=== PATIENT | male | born 1940 | race Caucasian/White ===

== ENCOUNTER 2019-12-11 10:30 | Inpatient (IN) ==
[2019-12-11] MEDS ORDERED: 0.9 % Sodium Chloride 1,000 ML IVC ONE (10:38)
[2019-12-11 11:13] LABS: Basophils % 0.6 %; Eosinophils % 0.3 %; Hematocrit 38.1 % (37.5-50.1); Hemoglobin 13.1 g/dL (12.9-16.9); Immature Granulocytes % 0.3 % (0-4); Lymphocytes # 1.8 K/mcL (0.6-4.6); Lymphocytes % 24.9 %; Mean Corpuscular HGB Conc 34.4 g/dL (31.6-35.5); Mean Corpuscular Hemoglobin 31.7 pg (28.0-33.3); Mean Corpuscular Volume 92.3 fL (83.0-100.0); Mean Platelet Volume 9.9 fL (9.4-12.4); Monocytes # 0.7 K/mcL (0.0-1.3); Monocytes % 10.5 %; Neutrophils # 4.5 K/mcL (1.6-8.9); Platelet Count 214 K/mcL (140-400); Red Blood Count 4.13 M/mcL (4.19-5.50); Red Cell Distribution Width 15.2 % (11.5-14.5); Segmented Neutrophils % 63.4 %
[2019-12-11 11:15] LABS: Bilirubin,Urine Negative (Negative); Blood,Urine Small (Negative); Clarity,Urine Cloudy (Clear); Color,Urine Yellow (Yellow); Glucose,Urine (UA) Normal (Normal); Ketones,Urine 15 mg/dL (Negative); Leukocyte Esterase,Urine Negative (Negative); Nitrite,Urine Negative (Negative); PH,Urine 7.5 pH Units (5.0-8.0); Protein,Urine 100 mg/dL (Neg-Trace); Specific Gravity,Urine 1.013 (1.010-1.025); Urobilinogen,Urine Normal (Normal)
[2019-12-11 11:17] LABS: ABG Base Excess 4 mEq/L (-2 to 3); ABG HCO3 28 mEq/L (21-27); ABG Oxygen Saturation 96 % (95-98); ABG PCO2 41 mmHg (35-45); ABG PH 7.44 pH Units (7.32-7.45); ABG PO2 77 mmHg (85-104); ABG TCO2 29 mEq/L (20-26)
[2019-12-11 11:18] LABS: Bacteria,Urine None Seen per hpf (None-Few); Hyaline Casts,Urine None Seen per lpf (None-Few); Squamous Epithelial Cell,Urine Many per lpf (None-Few); WBC,Urine 0-3 per hpf (0-3)
[2019-12-11 11:20] LABS: INR 1.1; Prothrombin Time 12.1 Seconds (9.4-12.1)
[2019-12-11 11:39] LABS: Alanine Aminotransferase 32 Units/L (7-52); Albumin 3.9 g/dL (3.5-5.7); Albumin/Globulin Ratio 1.1 (1.1-2.2); Alkaline Phosphatase 90 Units/L (34-104); Aspartate Amino Transferase 35 Units/L (13-39); BUN/Creatinine Ratio 13 (6-26); Bilirubin,Direct 0.2 mg/dL (0.0-0.2); Bilirubin,Indirect 0.5 mg/dL (0.0-1.0); Bilirubin,Total 0.7 mg/dL (0.3-1.0); Blood Urea Nitrogen 14 mg/dL (8-23); Calcium 9.1 mg/dL (8.6-10.3); Carbon Dioxide 26 mEq/L (23-29); Chloride 93 mEq/L (98-107); Ethanol < 10 mg/dL (Less than 10); Globulin 3.5 g/dL (2.4-3.5); Glucose 214 mg/dL (70-105); Magnesium 1.5 mg/dL (1.6-2.6); Osmolality,Calculated 279 (280-300); Potassium 3.5 mEq/L (3.5-5.1); Sodium 131 mEq/L (136-145); Total Protein 7.4 g/dL (6.4-8.9); Troponin I 0.04 ng/mL (< 0.04); eGFR For African Americans > 60 (> 60); eGFR For Non-African Americans > 60 (> 60)
[2019-12-11] MEDS ORDERED: Naloxone 0.4 MG/ML INJ IVP PRN (14:26)
[2019-12-11] MEDS ORDERED: methylPREDNISolone 125 MG/2 ML VIAL IVP ONE (14:33)
[2019-12-11 14:56] LABS: Appearance,CSF Clear (Clear)
[2019-12-11 15:04] LABS: Red Blood Cell,CSF < 2000 RBC/mcL
[2019-12-11 15:26] LABS: Glucose,CSF 119 mg/dL (40-70); Total Protein,CSF > 200 mg/dL (15-45)
[2019-12-11 15:39] LABS: C-Reactive Protein 39 mg/L (Less than 10)
[2019-12-11 15:43] LABS: Basophils,CSF 0 %; Eosinophils,CSF 0 %; Other Cells,CSF 0 %
[2019-12-11] MEDS ORDERED: Ipratropium/Albuterol Neb 3 ML IH SCH (16:00)
[2019-12-11] MEDS: IPRATROPIUM/ALBUTEROL SULFATE 120 PUFF INHALER IH SCH ×2 (16:04→22:22)
[2019-12-11] MEDS ORDERED: cefTRIAXone 2,000 MG in Water for inj. (sterile) 20 ML IVP STA (16:24)
[2019-12-11] MEDS ORDERED: Acetaminophen IV 1,000 MG/100 ML INFUS..BTL IVPB STA (16:24)
[2019-12-11] MEDS ORDERED: Acyclovir 800 MG in D5% in Water 250 ML IVPB STA (16:24)
[2019-12-11] MEDS: Insulin LISPRO 300 UNITS/3 ML VIAL SQ SCH (16:38)
[2019-12-11] MEDS: Ampicillin 2 GM in 0.9 % Sodium Chloride Mini Bag 100 ML IVPB SCH ×2 (17:48→19:51)
[2019-12-11 18:03] LABS: Procalcitonin 0.18 ng/mL (0.00-0.15)
[2019-12-11] MEDS: Vancomycin 2,000 MG/520 ML IV.SOLN IVPB SCH (18:23)
[2019-12-11] MEDS ORDERED: predniSONE 20 MG TABLET PO ONE (20:00)
[2019-12-11] MEDS: *HR* Heparin 5,000 UNIT/ML VIAL SQ SCH (21:55)
[2019-12-11] MEDS ORDERED: MethylPREDNISolone 40 MG/ML VIAL IVP SCH (22:00)
[2019-12-12] MEDS: Acyclovir 800 MG in D5% in Water 250 ML IVPB SCH ×3 (01:03→16:15)
[2019-12-12] MEDS: Ampicillin 2 GM in 0.9 % Sodium Chloride Mini Bag 100 ML IVPB SCH ×7 (01:03→23:42)
[2019-12-12] MEDS: Insulin LISPRO 300 UNITS/3 ML VIAL SQ SCH ×4 (01:10→16:36)
[2019-12-12 02:14] LABS: Basophils % 0.2 %; Hematocrit 34.9 % (37.5-50.1); Hemoglobin 12.8 g/dL (12.9-16.9); Immature Granulocytes % 0.2 % (0-4); Lymphocytes # 0.7 K/mcL (0.6-4.6); Lymphocytes % 12.7 %; Mean Corpuscular HGB Conc 36.7 g/dL (31.6-35.5); Mean Corpuscular Hemoglobin 35.7 pg (28.0-33.3); Mean Corpuscular Volume 97.2 fL (83.0-100.0); Mean Platelet Volume 10.2 fL (9.4-12.4); Monocytes # 0.1 K/mcL (0.0-1.3); Monocytes % 2.2 %; Neutrophils # 4.3 K/mcL (1.6-8.9); Platelet Count 217 K/mcL (140-400); Red Blood Count 3.59 M/mcL (4.19-5.50); Red Cell Distribution Width 16.5 % (11.5-14.5); Segmented Neutrophils % 84.7 %; White Blood Count 5.1 K/mcL (4.3-11.1)
[2019-12-12 02:34] LABS: BUN/Creatinine Ratio 16 (6-26); Blood Urea Nitrogen 19 mg/dL (8-23); Calcium 8.4 mg/dL (8.6-10.3); Carbon Dioxide 21 mEq/L (23-29); Chloride 93 mEq/L (98-107); Glucose 375 mg/dL (70-105); Magnesium 1.7 mg/dL (1.6-2.6); Osmolality,Calculated 288 (280-300); Potassium 3.9 mEq/L (3.5-5.1); Sodium 130 mEq/L (136-145); eGFR For African Americans > 60 (> 60); eGFR For Non-African Americans 58 (> 60)
[2019-12-12] MEDS: IPRATROPIUM/ALBUTEROL SULFATE 120 PUFF INHALER IH SCH ×4 (03:28→22:18)
[2019-12-12] MEDS: Vancomycin 2,000 MG/520 ML IV.SOLN IVPB SCH (05:40)
[2019-12-12] MEDS: *HR* Heparin 5,000 UNIT/ML VIAL SQ SCH ×3 (05:41→21:58)
[2019-12-12] MEDS ORDERED: D5% in Water 1,000 ML IVC PRN ×2 (08:00→13:40)
[2019-12-12] MEDS ORDERED: Dextrose Gel 15 GM/37.5 ML TUBE PO PRN ×4 (08:00→13:40)
[2019-12-12] MEDS ORDERED: *HR* Dextrose 50 % in Water (Syg) 50 ML SYRINGE IVP PRN ×2 (08:00→13:40)
[2019-12-12] MEDS ORDERED: Levothyroxine Sodium 100 MCG VIAL IVP SCH (09:00)
[2019-12-12] MEDS ORDERED: Insulin DETEMIR 100 UNIT/ML X5UNITS SQ SCH (09:00)
[2019-12-12] MEDS: cefTRIAXone 2,000 MG in Water for inj. (sterile) 20 ML IVP SCH ×2 (09:25→20:34)
[2019-12-12] MEDS: 0.9 % Sodium Chloride 1,000 ML IVC SCH (09:25)
[2019-12-12] MEDS: Nystatin SUSP 5 ML UD.LIQ PO SCH ×3 (12:15→20:34)
[2019-12-12] MEDS ORDERED: Vancomycin 1,500 MG/265 ML IV.SOLN IVPB SCH (17:00)
[2019-12-12] MEDS: Insulin DETEMIR 100 UNIT/ML X5UNITS SQ SCH (20:35)
[2019-12-12] MEDS ORDERED: Insulin LISPRO 300 UNITS/3 ML VIAL SQ SCH (21:00)
[2019-12-12] MEDS ORDERED: Gabapentin 100 MG CAPSULE PO SCH (21:00)
[2019-12-12] MEDS: *HR* HYDROcodone/Acet 5/325 mg TABLET PO PRN (23:42)
[2019-12-13] MEDS: Acyclovir 800 MG in D5% in Water 250 ML IVPB SCH ×3 (00:24→20:42)
[2019-12-13] MEDS: 0.9 % Sodium Chloride 1,000 ML IVC SCH ×2 (01:03→12:43)
[2019-12-13] MEDS: Ampicillin 2 GM in 0.9 % Sodium Chloride Mini Bag 100 ML IVPB SCH ×2 (03:49→08:54)
[2019-12-13] MEDS: Ipratropium/Albuterol Neb 3 ML IH SCH ×2 (04:14→11:23)
[2019-12-13] MEDS ORDERED: Vancomycin 2,000 MG/520 ML IV.SOLN IVPB SCH (05:00)
[2019-12-13 05:46] LABS: Hematocrit 35.2 % (37.5-50.1); Hemoglobin 11.7 g/dL (12.9-16.9); Mean Corpuscular HGB Conc 33.2 g/dL (31.6-35.5); Mean Corpuscular Hemoglobin 31.9 pg (28.0-33.3); Mean Corpuscular Volume 95.9 fL (83.0-100.0); Mean Platelet Volume 10.3 fL (9.4-12.4); Platelet Count 168 K/mcL (140-400); Red Blood Count 3.67 M/mcL (4.19-5.50); Red Cell Distribution Width 15.7 % (11.5-14.5); White Blood Count 6.1 K/mcL (4.3-11.1)
[2019-12-13] MEDS: *HR* Heparin 5,000 UNIT/ML VIAL SQ SCH ×3 (05:59→22:52)
[2019-12-13 07:47] LABS: BUN/Creatinine Ratio 19 (6-26); Blood Urea Nitrogen 24 mg/dL (8-23); Calcium 7.8 mg/dL (8.6-10.3); Carbon Dioxide 28 mEq/L (23-29); Chloride 98 mEq/L (98-107); Glucose 304 mg/dL (70-105); Osmolality,Calculated 291 (280-300); Potassium 3.4 mEq/L (3.5-5.1); Sodium 133 mEq/L (136-145); eGFR For African Americans > 60 (> 60); eGFR For Non-African Americans 56 (> 60)
[2019-12-13] MEDS ORDERED: Gadolinium Contrast Agent (WT Based) IV PRN (08:09)
[2019-12-13] MEDS: Insulin LISPRO 300 UNITS/3 ML VIAL SQ SCH ×5 (08:39→22:49)
[2019-12-13] MEDS: Metoprolol XL (24 HR) Succ 50 MG TAB.ER.24H PO SCH (08:41)
[2019-12-13] MEDS: predniSONE 5 MG TABLET PO SCH (08:43)
[2019-12-13] MEDS: amLODIPine 5 MG TABLET PO SCH (08:43)
[2019-12-13] MEDS: Aspirin Enteric Coated 81 MG Tablet PO SCH (08:44)
[2019-12-13] MEDS: Folic Acid 1 MG TABLET PO SCH (08:44)
[2019-12-13] MEDS: Nystatin SUSP 5 ML UD.LIQ PO SCH ×4 (08:44→22:52)
[2019-12-13] MEDS: cefTRIAXone 2,000 MG in Water for inj. (sterile) 20 ML IVP SCH (08:45)
[2019-12-13] MEDS: Cholecalciferol (D-3) 1,000 UNIT (25MCG) TABLET PO SCH (08:49)
[2019-12-13] MEDS: Insulin DETEMIR 100 UNIT/ML X5UNITS SQ SCH ×2 (08:56→22:51)
[2019-12-13 11:41] LABS: ABG Base Excess 1 mEq/L (-2 to 3); ABG HCO3 27 mEq/L (21-27); ABG Oxygen Saturation 94 % (95-98); ABG PCO2 46 mmHg (35-45); ABG PH 7.38 pH Units (7.32-7.45); ABG PO2 75 mmHg (85-104); ABG TCO2 28 mEq/L (20-26)
[2019-12-13] MEDS: Gabapentin 100 MG CAPSULE PO SCH ×2 (12:46→22:52)
[2019-12-13] MEDS ORDERED: Acetaminophen 325 MG TABLET PO PRN (13:28)
[2019-12-14] MEDS: Acyclovir 800 MG in D5% in Water 250 ML IVPB SCH ×3 (06:14→21:55)
[2019-12-14] MEDS: *HR* Heparin 5,000 UNIT/ML VIAL SQ SCH ×3 (06:30→22:07)
[2019-12-14 06:44] LABS: Basophils % 0.7 %; Eosinophils # 0.2 K/mcL (0.0-0.6); Eosinophils % 3.2 %; Hematocrit 33.3 % (37.5-50.1); Hemoglobin 10.6 g/dL (12.9-16.9); Immature Granulocytes % 0.5 % (0-4); Lymphocytes # 1.7 K/mcL (0.6-4.6); Lymphocytes % 27.6 %; Mean Corpuscular HGB Conc 31.8 g/dL (31.6-35.5); Mean Corpuscular Hemoglobin 29.9 pg (28.0-33.3); Mean Corpuscular Volume 93.8 fL (83.0-100.0); Mean Platelet Volume 9.9 fL (9.4-12.4); Monocytes # 0.5 K/mcL (0.0-1.3); Monocytes % 8.5 %; Neutrophils # 3.6 K/mcL (1.6-8.9); Platelet Count 196 K/mcL (140-400); Red Blood Count 3.55 M/mcL (4.19-5.50); Red Cell Distribution Width 15.4 % (11.5-14.5); Segmented Neutrophils % 59.5 %
[2019-12-14 07:04] LABS: BUN/Creatinine Ratio 18 (6-26); Blood Urea Nitrogen 21 mg/dL (8-23); Carbon Dioxide 26 mEq/L (23-29); Chloride 100 mEq/L (98-107); Glucose 215 mg/dL (70-105); Magnesium 1.8 mg/dL (1.6-2.6); Osmolality,Calculated 285 (280-300); Phosphorous 2.3 mg/dL (2.7-4.5); Potassium 3.4 mEq/L (3.5-5.1); Sodium 133 mEq/L (136-145); eGFR For African Americans > 60 (> 60); eGFR For Non-African Americans > 60 (> 60)
[2019-12-14 07:05] LABS: Platelet Estimate Normal (Normal)
[2019-12-14] MEDS: 0.9 % Sodium Chloride 1,000 ML IVC SCH ×3 (08:04→11:33)
[2019-12-14] MEDS ORDERED: Potassium Chloride Elixir 20 MEQ/15 ML UDC PO ONE (08:06)
[2019-12-14] MEDS: Nystatin SUSP 5 ML UD.LIQ PO SCH ×4 (08:10→22:06)
[2019-12-14] MEDS: Aspirin Enteric Coated 81 MG Tablet PO SCH (08:10)
[2019-12-14] MEDS: Cholecalciferol (D-3) 1,000 UNIT (25MCG) TABLET PO SCH (08:10)
[2019-12-14] MEDS: predniSONE 5 MG TABLET PO SCH (08:11)
[2019-12-14] MEDS: Folic Acid 1 MG TABLET PO SCH (08:11)
[2019-12-14] MEDS: Metoprolol XL (24 HR) Succ 50 MG TAB.ER.24H PO SCH (08:11)
[2019-12-14] MEDS: amLODIPine 5 MG TABLET PO SCH (08:11)
[2019-12-14] MEDS: Gabapentin 100 MG CAPSULE PO SCH ×2 (08:11→22:06)
[2019-12-14] MEDS: Insulin LISPRO 300 UNITS/3 ML VIAL SQ SCH ×4 (08:15→22:32)
[2019-12-14] MEDS: Insulin DETEMIR 100 UNIT/ML X5UNITS SQ SCH ×2 (08:20→22:05)
[2019-12-14] MEDS: Ipratropium/Albuterol Neb 3 ML IH PRN (10:30)
[2019-12-14] MEDS ORDERED: Furosemide 20 MG/2 ML VIAL IVP ONE (11:23)
[2019-12-14 14:18] LABS: Bilirubin,Urine Negative (Negative); Blood,Urine Large (Negative); Clarity,Urine Cloudy (Clear); Color,Urine Yellow (Yellow); Glucose,Urine (UA) Normal (Normal); Ketones,Urine Negative (Negative); Leukocyte Esterase,Urine Small (Negative); Nitrite,Urine Negative (Negative); Protein,Urine 30 mg/dL (Neg-Trace); Specific Gravity,Urine 1.017 (1.010-1.025); Urobilinogen,Urine Normal (Normal)
[2019-12-14 14:21] LABS: Hyaline Casts,Urine None Seen per lpf (None-Few); Squamous Epithelial Cell,Urine Moderate per lpf (None-Few)
[2019-12-14 14:26] LABS: HSV Source CSF
[2019-12-14 14:45] LABS: RBC,Urine 15-30 per hpf (0-3)
[2019-12-14 14:46] LABS: Bacteria,Urine Few per hpf (None-Few)
[2019-12-15] MEDS: Acyclovir 800 MG in D5% in Water 250 ML IVPB SCH ×3 (05:30→21:20)
[2019-12-15] MEDS: *HR* Heparin 5,000 UNIT/ML VIAL SQ SCH ×3 (05:58→22:45)
[2019-12-15 06:45] LABS: Hematocrit 29.6 % (37.5-50.1); Hemoglobin 9.6 g/dL (12.9-16.9); Mean Corpuscular HGB Conc 32.4 g/dL (31.6-35.5); Mean Corpuscular Hemoglobin 30.5 pg (28.0-33.3); Mean Platelet Volume 10.1 fL (9.4-12.4); Platelet Count 186 K/mcL (140-400); Red Blood Count 3.15 M/mcL (4.19-5.50); Red Cell Distribution Width 15.5 % (11.5-14.5); White Blood Count 5.7 K/mcL (4.3-11.1)
[2019-12-15 07:02] LABS: BUN/Creatinine Ratio 14 (6-26); Blood Urea Nitrogen 15 mg/dL (8-23); Calcium 8.1 mg/dL (8.6-10.3); Carbon Dioxide 28 mEq/L (23-29); Chloride 101 mEq/L (98-107); Glucose 259 mg/dL (70-105); Osmolality,Calculated 288 (280-300); Phosphorous 2.7 mg/dL (2.7-4.5); Potassium 3.3 mEq/L (3.5-5.1); Sodium 134 mEq/L (136-145); eGFR For African Americans > 60 (> 60); eGFR For Non-African Americans > 60 (> 60)
[2019-12-15] MEDS ORDERED: Potassium Chloride Elixir 20 MEQ/15 ML UDC PO ONE (07:18)
[2019-12-15] MEDS: Cholecalciferol (D-3) 1,000 UNIT (25MCG) TABLET PO SCH (08:43)
[2019-12-15] MEDS: Nystatin SUSP 5 ML UD.LIQ PO SCH ×4 (08:43→22:44)
[2019-12-15] MEDS: Aspirin Enteric Coated 81 MG Tablet PO SCH (08:43)
[2019-12-15] MEDS: Metoprolol XL (24 HR) Succ 50 MG TAB.ER.24H PO SCH (08:43)
[2019-12-15] MEDS: predniSONE 5 MG TABLET PO SCH (08:43)
[2019-12-15] MEDS: amLODIPine 5 MG TABLET PO SCH (08:44)
[2019-12-15] MEDS: Folic Acid 1 MG TABLET PO SCH (08:44)
[2019-12-15] MEDS: Gabapentin 100 MG CAPSULE PO SCH ×2 (08:44→21:20)
[2019-12-15] MEDS: Insulin LISPRO 300 UNITS/3 ML VIAL SQ SCH ×7 (08:45→22:33)
[2019-12-15] MEDS: Insulin DETEMIR 100 UNIT/ML X5UNITS SQ SCH ×2 (08:45→22:41)
[2019-12-15] MEDS ORDERED: Furosemide 20 MG/2 ML VIAL IVP ONE ×2 (09:22→17:00)
[2019-12-15 10:23] LABS: ABG Base Excess 3 mEq/L (-2 to 3); ABG HCO3 29 mEq/L (21-27); ABG Oxygen Saturation 95 % (95-98); ABG PCO2 50 mmHg (35-45); ABG PH 7.37 pH Units (7.32-7.45); ABG PO2 77 mmHg (85-104); ABG TCO2 31 mEq/L (20-26)
[2019-12-15] MEDS: Ipratropium/Albuterol Neb 3 ML IH PRN (10:25)
[2019-12-15] MEDS ORDERED: Furosemide 40 MG/4 ML VIAL IVP ONE (17:00)
[2019-12-16 03:46] LABS: VBG HCO3 28 mEq/L (21-27); VBG PCO2 48 mmHg (41-51); VBG PH 7.37 pH Units (7.32-7.42); VBG PO2 60 mmHg (25-50)
[2019-12-16 03:52] LABS: Basophils % 0.4 %; Eosinophils # 0.2 K/mcL (0.0-0.6); Eosinophils % 3.4 %; Hemoglobin 10.7 g/dL (12.9-16.9); Lymphocytes # 1.6 K/mcL (0.6-4.6); Lymphocytes % 31.5 %; Mean Corpuscular HGB Conc 33.4 g/dL (31.6-35.5); Mean Corpuscular Hemoglobin 31.7 pg (28.0-33.3); Mean Corpuscular Volume 94.7 fL (83.0-100.0); Mean Platelet Volume 10.3 fL (9.4-12.4); Monocytes # 0.4 K/mcL (0.0-1.3); Monocytes % 7.4 %; Neutrophils # 2.9 K/mcL (1.6-8.9); Platelet Count 208 K/mcL (140-400); Red Blood Count 3.38 M/mcL (4.19-5.50); Red Cell Distribution Width 15.4 % (11.5-14.5); Segmented Neutrophils % 57.3 %
[2019-12-16 04:07] LABS: BUN/Creatinine Ratio 10 (6-26); Blood Urea Nitrogen 11 mg/dL (8-23); Calcium 8.3 mg/dL (8.6-10.3); Carbon Dioxide 27 mEq/L (23-29); Chloride 101 mEq/L (98-107); Glucose 140 mg/dL (70-105); Osmolality,Calculated 284 (280-300); Potassium 3.3 mEq/L (3.5-5.1); Sodium 136 mEq/L (136-145); eGFR For African Americans > 60 (> 60); eGFR For Non-African Americans > 60 (> 60)
[2019-12-16 05:28] LABS: Platelet Estimate Normal (Normal); Reactive Lymphocytes Present (Not Present)
[2019-12-16] MEDS: Acyclovir 800 MG in D5% in Water 250 ML IVPB SCH ×3 (05:49→21:55)
[2019-12-16] MEDS: *HR* Heparin 5,000 UNIT/ML VIAL SQ SCH ×3 (06:44→23:00)
[2019-12-16] MEDS: 0.9 % Sodium Chloride 1,000 ML IVC SCH (06:59)
[2019-12-16] MEDS ORDERED: Potassium Chloride Elixir 20 MEQ/15 ML UDC PO ONE (07:26)
[2019-12-16] MEDS: Torsemide 20 MG TABLET PO SCH (09:29)
[2019-12-16] MEDS: Nystatin SUSP 5 ML UD.LIQ PO SCH ×4 (09:29→23:39)
[2019-12-16] MEDS: Aspirin Enteric Coated 81 MG Tablet PO SCH (09:30)
[2019-12-16] MEDS: Folic Acid 1 MG TABLET PO SCH (09:30)
[2019-12-16] MEDS: predniSONE 5 MG TABLET PO SCH (09:30)
[2019-12-16] MEDS: Gabapentin 100 MG CAPSULE PO SCH ×2 (09:30→23:45)
[2019-12-16] MEDS: Metoprolol XL (24 HR) Succ 50 MG TAB.ER.24H PO SCH (09:30)
[2019-12-16] MEDS: amLODIPine 5 MG TABLET PO SCH (09:30)
[2019-12-16] MEDS: Cholecalciferol (D-3) 1,000 UNIT (25MCG) TABLET PO SCH (09:32)
[2019-12-16] MEDS: Insulin LISPRO 300 UNITS/3 ML VIAL SQ SCH ×7 (09:35→21:38)
[2019-12-16] MEDS: Insulin DETEMIR 100 UNIT/ML X5UNITS SQ SCH ×2 (09:40→23:39)
[2019-12-16] MEDS: *HR* HYDROcodone/Acet 5/325 mg TABLET PO PRN (12:40)
[2019-12-16] MEDS ORDERED: Furosemide 40 MG/4 ML VIAL IVP ONE (17:00)
[2019-12-17] MEDS: Acyclovir 800 MG in D5% in Water 250 ML IVPB SCH ×3 (05:00→21:20)
[2019-12-17] MEDS: *HR* Heparin 5,000 UNIT/ML VIAL SQ SCH ×3 (05:26→21:20)
[2019-12-17] MEDS: Nystatin SUSP 5 ML UD.LIQ PO SCH ×4 (10:11→21:20)
[2019-12-17] MEDS: Torsemide 20 MG TABLET PO SCH (10:12)
[2019-12-17] MEDS: Metoprolol XL (24 HR) Succ 50 MG TAB.ER.24H PO SCH (10:12)
[2019-12-17] MEDS: predniSONE 5 MG TABLET PO SCH (10:12)
[2019-12-17] MEDS: Folic Acid 1 MG TABLET PO SCH (10:12)
[2019-12-17] MEDS: amLODIPine 5 MG TABLET PO SCH (10:12)
[2019-12-17] MEDS: *HR* HYDROcodone/Acet 5/325 mg TABLET PO PRN ×2 (10:13→21:19)
[2019-12-17] MEDS: Aspirin Enteric Coated 81 MG Tablet PO SCH (10:13)
[2019-12-17] MEDS: Gabapentin 100 MG CAPSULE PO SCH ×2 (10:13→21:20)
[2019-12-17] MEDS: Insulin LISPRO 300 UNITS/3 ML VIAL SQ SCH ×7 (10:17→21:32)
[2019-12-17] MEDS: Cholecalciferol (D-3) 1,000 UNIT (25MCG) TABLET PO SCH (10:30)
[2019-12-17] MEDS: Insulin DETEMIR 100 UNIT/ML X5UNITS SQ SCH ×2 (10:31→21:20)
[2019-12-18] MEDS: *HR* Heparin 5,000 UNIT/ML VIAL SQ SCH (05:28)
[2019-12-18] MEDS: Acyclovir 800 MG in D5% in Water 250 ML IVPB SCH (05:28)
[2019-12-18] MEDS: Insulin DETEMIR 100 UNIT/ML X5UNITS SQ SCH (08:14)
[2019-12-18] MEDS: Metoprolol XL (24 HR) Succ 50 MG TAB.ER.24H PO SCH (08:15)
[2019-12-18] MEDS: Insulin LISPRO 300 UNITS/3 ML VIAL SQ SCH ×4 (08:15→11:57)
[2019-12-18] MEDS: Gabapentin 100 MG CAPSULE PO SCH (08:16)
[2019-12-18] MEDS: Nystatin SUSP 5 ML UD.LIQ PO SCH (08:16)
[2019-12-18] MEDS: Folic Acid 1 MG TABLET PO SCH (08:16)
[2019-12-18] MEDS: predniSONE 5 MG TABLET PO SCH (08:16)
[2019-12-18] MEDS: Cholecalciferol (D-3) 1,000 UNIT (25MCG) TABLET PO SCH (08:16)
[2019-12-18] MEDS: Torsemide 20 MG TABLET PO SCH (08:16)
[2019-12-18] MEDS: Aspirin Enteric Coated 81 MG Tablet PO SCH (08:16)
[2019-12-18] MEDS: amLODIPine 5 MG TABLET PO SCH (08:16)
[2019-12-18 11:46] VITALS: BP 127/70
== END 2019-12-18 12:43 | disposition home health service (06) | DRG 871 ==
LOC: EMEROOARM 10:30 → 2NENU 10:30 → SUATTDRO 14:27 → 2NENU 15:41 → SUATTDRO 12-12 13:37 → 3BNU 12-12 19:13 → 2ANU 12-13 15:00
PROVIDERS: ADMIT Student in an Organized Health Care Education/Training Program; ATTEND Internal Medicine